=== PATIENT | female | born 1960 | race Caucasian/White ===

== ENCOUNTER → 2019-04-07 | Outpatient (CLI) | payer OTHER ==
[~2019-04-07] MED LIST: LIDOCAINE 2%/EPI 1:100,000 20 ML VIAL. ONE
--- NOTE | 2019-04-07 18:11 | RAD ---
Examination: 1. Left breast stereotactic biopsy. 2. Left postprocedure diagnostic mammogram. INDICATION: 58-year-old woman recommended for biopsy of developing calcifications in a regional distribution in the upper outer left breast. COMPARISON: 03/28/2019 TECHNIQUE: Informed consent was obtained and an appropriate procedural pause observed. Using standard sterile technique, mammographic imaging guidance and local anesthesia with stereotactic imaging guidance, multiple vacuum-assisted core biopsy samples were obtained of calcifications in the posterior upper outer left breast. A specimen radiograph was obtained, confirming the presence of targeted calcifications in the specimen. A biopsy marker was deployed (judah shaped) and hemostasis assured with direct compression for 10 minutes following removal of the needle. Post biopsy mammogram showed successful deployment of the biopsy marker which had apparently migrated superficially. This is likely of no clinical significance. No postbiopsy hematoma. The puncture site was dressed and postprocedure instructions were reviewed prior to patient discharge from the imaging suite. There were no apparent complications. IMPRESSION: Successful stereotactic left breast biopsy of calcifications in the posterior upper-outer quadrant left breast. Pathology results are pending. An addendum will be issued once pathology results become available.
--- NOTE | 2019-04-11 16:06 | PATHOLOGY ---
[facility] Accession Number: [id number] . 01 Material submitted: . breast - LEFT BREAST CALCIFICATIONS. Modifiers: left . 01 Clinical history: . Left breast calcifications . 02 Diagnosis: Breast tissue, left breast needle biopsies: - Stromal fibrosis with scattered microcalcifications within benign terminal duct/lobular units. . (JPM:alina; 04/11/2019) QMS 04/11/2019 1111 Local . 02 Comment: There are scattered microcalcifications within benign terminal duct lobular units. There is no atypia or evidence of malignancy. Please correlate with mammographic findings. (JPM:alina; 04/11/2019) . 02 Electronically signed: . Irvin Alba MD, Pathologist NPI- [id number] . 01 Gross description: . The specimen is received in formalin, labeled "Vickie Cotton, left breast calcifications" and consists of an orange cassette containing multiple needle cores of yellow breast tissue measuring 2.6 x 2.3 x 0.5 cm in aggregate which are transferred to cassette A1. The specimen was collected at 3:10 PM on 04/07/2019 and placed in formalin at 3:15 PM. The cold ischemic time is 5 minutes and the total formalin fixation time is greater than 6 hours less than 72 hours. (SDY; 04/08/2019) SYU/SYU 04/08/2019 1746 Local . 02 Pathologist provided ICD-10: N60.32 . 02 CPT . 135756 Specimen Comment: A courtesy copy of this report has been sent to [phone], [phone] Specimen Comment: [id number] Specimen Comment: Report sent to / DR LILLY Performed at: [address] [place] [address] [facility] [address], [place], [place] [id number] MD Rafael Smith MD Phone: [phone] Performed at: [address] [id number] MD Irvin Alba MD Phone: [phone]
== END ==
LOC: MAMMO 13:47
PROVIDERS: ATTEND Family Medicine
DX: R92.0 Mammographic microcalcification found on diagnostic imaging of breast (principal); N60.32 Fibrosclerosis of left breast
CPT/HCPCS: 19081; 77022; 77065; C1713; 19085; 88305